=== PATIENT | female | born 1985 | race Caucasian/White ===

== ENCOUNTER 2021-04-15 17:59 | Emergency (ER) | payer BC, OTHER ==
[~2021-04-15 17:59] MED LIST: ABILIFY 5 MG TAB5 MG PO; BUSPIRONE HCL15 MG PO; COLACE 100MG C100 MG PO; IBUPROFEN600 MG PO; LAMICTAL100 MG PO; LORATADINE10 MG PO; NORCO 10-325 T1 EACH PO; NORFLEX 100 MG100 MG PO; PREDNISONE 50 M50 MG PO; VISTARIL 50 MG50 MG PO; Voltaren Gel 1 % TOP
[2021-04-15 18:37] LABS: HEMOGLOBIN 14.9 gm/dl (12.3-15.3); RED BLOOD COUNT 5.1 M/UL (4.00-5.10); WHITE BLOOD COUNT 8.8 K/UL (4.5-11.0)
[2021-04-15 19:16] LABS: BUN/CREATININE RATIO 13 (0-10)
== END 2021-04-15 22:35 | disposition home or self-care (01) ==
LOC: ER1 17:59
PROVIDERS: Physician Assistant
DX: G43.809 Other migraine, not intractable, without status migrainosus (principal); R20.2 Paresthesia of skin; H54.60 Unqualified visual loss, one eye, unspecified; I10 Essential (primary) hypertension; Z90.710 Acquired absence of both cervix and uterus
CPT/HCPCS: 70450; 70496; 70498; 80053; 82550; 82553; 83874; 84484; 85025; 85610; 93005; 96374; 96375; 99285; J1100; J1200; J1885; J2765; Q9967

== ENCOUNTER → 2021-04-19 | Outpatient (CLI) | payer BC, OTHER | LOC: KOH-I 08:34 | DX: R06.00 Dyspnea, unspecified (principal) | CPT/HCPCS: 71046 ==

== ENCOUNTER → 2021-04-29 | Outpatient (CLI) | payer BC, OTHER | LOC: EXRD 08:00 | DX: R03.0 Elevated blood-pressure reading, without diagnosis of hypertension (principal) | CPT/HCPCS: 93975 ==

== ENCOUNTER → 2021-04-29 | Outpatient (CLI) | payer BC, OTHER | LOC: ECHO 09:30 | DX: R06.00 Dyspnea, unspecified (principal); I07.1 Rheumatic tricuspid insufficiency | CPT/HCPCS: ECHO; 93306 ==

== ENCOUNTER → 2021-07-22 | Outpatient (CLI) | payer OTHER | LOC: HEART 5 11:17 | DX: R00.2 Palpitations (principal); R06.02 Shortness of breath ==